=== PATIENT | male | born 1960 | race Caucasian/White ===

== ENCOUNTER 2021-01-29 18:27 | Emergency (ER) | payer MEDICAID ==
[~2021-01-29] VITALS: Ht 182.9 cm; Wt 77.3 kg
[2021-01-29] MEDS ORDERED: OLANZapine 2.5MG tablet PO STA (19:21)
[2021-01-29] MEDS ORDERED: risperiDONE 0.5mg tablet PO ONE (19:25)
[2021-01-29 19:48] LABS: BASOPHILS # (AUTO) 0.1 X10'3 (0-0.2); EOSINOPHILS # (AUTO) 0.2 X10'3 (0-0.9); HEMATOCRIT 37.2 % (42.0-52.0); HEMOGLOBIN 12.5 g/dl (14.0-17.9); LYMPHOCYTES # (AUTO) 1.5 X10'3 (1.1-4.8); LYMPHOCYTES % (AUTO) 19.9 % (21-51); MEAN CORPUSCULAR HEMOGLOBIN 28.3 PG (27.0-31.0); MEAN CORPUSCULAR HGB CONC 33.5 g/dL (33.0-36.5); MEAN CORPUSCULAR VOLUME 84.4 FL (78-98); MEAN PLATELET VOLUME 7.4 FL (7.4-10.4); MONOCYTES # (AUTO) 0.6 X10'3 (0-0.9); MONOCYTES % (AUTO) 8.2 % (2-12); NEUTROPHILS # (AUTO) 5.3 X10'3 (1.8-7.7); NEUTROPHILS % (AUTO) 68.9 % (42-75); PLATELET COUNT 302 X10'3 (140-440); RED BLOOD COUNT 4.41 X10'6 (4.70-6.10); RED CELL DISTRIBUTION WIDTH 13.6 % (11.5-14.5); WHITE BLOOD COUNT 7.7 X10'3 (4.5-11.0)
[2021-01-29 20:01] LABS: ALANINE AMINOTRANSFERASE 52 U/L (12-78); ALBUMIN 3.5 G/DL (3.4-5.0); ALBUMIN/GLOBULIN RATIO 0.9 (1.1-1.5); ALKALINE PHOSPHATASE 79 IU/L (46-116); ANION GAP 10 (8-16); ASPARTATE AMINO TRANSFERASE 45 U/L (10-37); BILIRUBIN,TOTAL 0.4 MG/DL (0.1-1.0); BLOOD UREA NITROGEN 27 MG/DL (7-18); BUN/CREATININE RATIO 20.9 (5.4-32.0); CALCIUM 9.6 MG/DL (8.5-10.1); CHLORIDE 103 MMOL/L (99-107); CREATININE 1.29 MG/DL (0.60-1.10); GLUCOSE 132 MG/DL (70-104); POTASSIUM 3.5 MMOL/L (3.5-5.1); SODIUM 140 MMOL/L (135-145); TOTAL CARBON DIOXIDE 26.6 MMOL/L (24-32); TOTAL PROTEIN 7.3 G/DL (6.4-8.2); eGFR 57 ML/MIN
[2021-01-29 20:10] LABS: ETHANOL < 0.010 GM/DL (0.0-0.010)
--- NOTE | 2021-01-29 20:29 | NUR ---
Pt cooperative and forthcoming with information. Pt given a sandwich, milk, jello, and orange juice as well as warm blanket.
[2021-01-30 06:01] VITALS: BP 117/70
--- NOTE | 2021-01-30 06:08 | NUR ---
Patient's packet was sent to [facility].
[2021-01-30 07:09] LABS: URINE AMPHETAMINE SCREEN POSITIVE (Neg); URINE BARBITUATE SCREEN NEGATIVE (Neg); URINE BENZODIAZEPINES SCREEN NEGATIVE (Neg); URINE CANNABINOID SCREEN POSITIVE (Neg); URINE COCAINE SCREEN NEGATIVE (Neg); URINE METHADONE SCREEN NEGATIVE (Neg); URINE OPIATE SCREEN NEGATIVE (Neg); URINE PHENCYCLIDINE SCREEN NEGATIVE (Neg)
[2021-01-30] MEDS ORDERED: NO HOME MEDS (07:30)
--- NOTE | 2021-01-30 07:47 | NUR ---
Report given to RN Ramona and pt escorted to Overflow bed 24
--- NOTE | 2021-01-30 07:50 | NUR ---
Received report from HENRIQUE Arriaga. Pt ambulatory upon arrival. Pt. ate breakfast. Resting on his right side. No distress noted. Will continue to monitor.
--- NOTE | 2021-01-30 09:51 | NUR ---
Pt asleep on left side, no distress noted. Will continue to monitor.
--- NOTE | 2021-01-30 10:47 | NUR ---
Pt. being evaluated by [facility].
--- NOTE | 2021-01-30 11:40 | NUR ---
Family Information: Braulio [phone] Krishna [phone] Ward [phone]
--- NOTE | 2021-01-30 11:45 | NUR ---
Pt cooperative with [facility], pt. cleared for discharge at this time. Dischage paperwork reviewed with pt. and signed. Belongings provided to pt., cleit changed into street clothes and escorted out.
== END 2021-01-30 12:05 | disposition home or self-care (01) ==
LOC: ER 18:28
DX: F29 Unspecified psychosis not due to a substance or known physiological condition (principal); Z20.822 Contact with and (suspected) exposure to COVID-19; F15.10 Other stimulant abuse, uncomplicated; F12.90 Cannabis use, unspecified, uncomplicated; Z59.0 Homelessness
CPT/HCPCS: 36415; 80053; 80305; 80320; 84443; 85025; 87426; 99285